=== PATIENT | male | born 1955 | race African-American/Black ===

== ENCOUNTER 2018-01-28 01:16 | Emergency (ER) | payer OTHER ==
[2018-01-28 01:26] VITALS: BP 148/84; PULSE 85; TEMP 97.6; BMI 26.4
--- NOTE | 2018-01-28 02:54 | PDOC ---
History of Present Illness - General Chief Complaint: Pain, Acute Stated Complaint: LEG PAIN Time Seen by Provider: 01/28/18 02:54 History Source: Patient - History of Present Illness Initial Comments: 01/28/18 03:05 62-year-old male brought in by ambulance for alcohol intoxication from the [place]. Patient is unkempt alcohol on breath bilateral lower extremity edema no evidence of trauma. Past History - Past Medical History Allergies/Adverse Reactions: Allergies Allergy/AdvReac Type Severity Reaction Status Date / Time orange juice [Kingfisher Juice] Allergy Intermediate RASH FROM Verified 01/28/18 01: 25 ORANGES Penicillins Allergy Intermediate Hives Verified 01/28/18 01:25 shellfish derived Allergy Intermediate Hives Verified 01/28/18 01:25 orange Allergy Intermediate Rash Uncoded 01/28/18 01:25 Home Medications: Ambulatory Orders Fluoxetine HCl Liquid [Prozac 20mg/5mL Oral Solution -] 20 mg PO DAILY 05/05/12 Quetiapine Fumarate [Seroquel -] 50 mg PO HS #0 tablet 09/03/12 Anemia: Yes Asthma: No Cancer: No Cardiac Disorders: No CVA: No COPD: No CHF: No Dementia: No Diabetes: No GI Disorders: No Disorders: No HTN: No Hypercholesterolemia: No Kidney Stones: No Liver Disease: No Seizures: Yes (3 weeks ago) Thyroid Disease: No - Surgical History Abdominal Surgery: No Appendectomy: No Cardiac Surgery: No Cholecystectomy: No Lung Surgery: No Neurologic Surgery: No Orthopedic Surgery: Yes (HIPS REPLACEMENTS X 4 - CISCO.) - Reproductive History Testicular Surgery: No - Suicide/Smoking/Psychosocial Hx Smoking Status: Yes Smoking History: Never smoked Have you smoked in the past 12 months: No Number of Cigarettes Smoked Daily: 30 Information on smoking cessation initiated: No 'Breaking Loose' booklet given: 12/19/12 Hx Alcohol Use: No Drug/Substance Use Hx: No Substance Use Type: Alcohol Hx Substance Use Treatment: Yes *Physical Exam - Vital Signs Last Vital Signs Temp Pulse Resp BP Pulse Ox 97.6 F 85 20 148/84 97 01/28/18 01:25 01/28/18 01:25 01/28/18 01:25 01/28/18 01:25 01/28/18 01:25 - Physical Exam General Appearance: Yes: Appropriately Dressed HEENT: positive: Other (normocephalic) Gastrointestinal/Abdominal: positive: Normal Bowel Sounds, Soft. negative: Tender Extremity: positive: Swelling (bilateral lower extremity pitting edema) Integumentary: positive: Normal Color, Dry, Warm Neurologic: positive: Fully Oriented, Alert, Normal Mood/Affect Medical Decision Making - Medical Decision Making 01/28/18 04:47 await sobriety. napoleon zhao patient is asking for a sandwich. patient is noted to urinate on the floor. 01/28/18 05:09 patient urinating on floor. alert awake. will d/c *DC/Admit/Observation/Transfer Diagnosis at time of Disposition: Alcohol dependence - Discharge Dispostion Disposition: HOME - Referrals - Patient Instructions Printed Discharge Instructions: DI for Alcohol Abuse - Post Discharge Activity
== END 2018-01-28 05:27 | disposition home or self-care (01) ==
LOC: JER 01:16
DX: F10.220 Alcohol dependence with intoxication, uncomplicated (principal); R60.0 Localized edema; R56.9 Unspecified convulsions; Z88.0 Allergy status to penicillin; Z91.018 Allergy to other foods
CPT/HCPCS: 99282-25